=== PATIENT | male | born 1940 | race African-American/Black ===

== ENCOUNTER 2016-11-09 10:47 | Inpatient (IN) | payer OTHER ==
[2016-11-09] VITALS (16 sets, daily range): BP systolic 111–165; BP diastolic 56–74
[~2016-11-09] VITALS: Ht 165.1 cm; Wt 62.6 kg
[2016-11-09 12:16] LABS: BASO # 0.1 x10^3/uL (0.0-0.2); BASO % 1 % (0-3); EOS % 2 % (0-3); LYMPH # 1.6 x10^3/uL (1.0-4.8); LYMPH % 18 % (24-48); MEAN CORPUSCULAR HEMOGLOBIN 23 pg (25-35); MEAN CORPUSCULAR HGB CONC 30 g/dL (31-37); MEAN CORPUSCULAR VOLUME 76 fL (79-100); MONO % 10 % (0-9); NEUT % 71 % (31-73); PLATELET COUNT 336 x10^3/uL (140-400); RED BLOOD COUNT 2.72 x10^6/uL (4.30-5.70); RED CELL DISTRIBUTION WIDTH 20.9 % (11.5-14.5); WHITE BLOOD COUNT 8.9 x10^3/uL (4.0-11.0)
[2016-11-09 12:19] LABS: HEMOGLOBIN 6.2 g/dL (13.0-17.5)
[2016-11-09 12:20] LABS: HEMATOCRIT 20.5 % (39.0-53.0)
[2016-11-09 12:22] LABS: CALCIUM 9.2 mg/dL (8.5-10.1); CREATININE 1.3 mg/dL (0.7-1.3); GFR 64.9; POTASSIUM 4.3 mmol/L (3.5-5.1)
[2016-11-09 12:27] LABS: ALBUMIN 3.3 g/dL (3.4-5.0); ALBUMIN/GLOBULIN RATIO 0.8 (1.0-1.7); TOTAL BILIRUBIN 0.3 mg/dL (0.2-1.0); TOTAL PROTEIN 7.4 g/dL (6.4-8.2)
--- NOTE | 2016-11-09 12:27 | PHYS DOC ---
Past Medical History Past Medical History: GERD, High Cholesterol, Hypertension Past Surgical History: Other Alcohol Use: None Drug Use: None Adult General Chief Complaint Chief Complaint: WEAKNESS/GENERALIZED HPI HPI 76-year-old male presents with generalized weakness. He states he has been so weak he hasn't really been able to get up and move around. His states that his feet have been swelling quite a bit lately. He did complain of some epigastric and chest pain after eating head cheese and potato chips last night. He denies any melena or hematemesis. He states he is not having any symptoms currently.] Review of Systems Review of Systems Constitutional: Denies fever or chills [] Eyes: Denies change in visual acuity, redness, or eye pain [] HENT: Denies nasal congestion or sore throat [] Respiratory: Denies cough or shortness of breath [] Cardiovascular: No additional information not addressed in HPI [] GI: Denies abdominal pain, nausea, vomiting, bloody stools or diarrhea [] : Denies dysuria or hematuria [] Musculoskeletal: Denies back pain or joint pain [] Integument: Denies rash or skin lesions [] Neurologic: Denies headache, focal weakness or sensory changes [] Endocrine: Denies polyuria or polydipsia [] Current Medications Current Medications Current Medications Medications (Trade) Dose Ordered Sig/Vern Start Time Stop Time Status Last Admin Dose Admin Ondansetron HCl (Zofran) 4 mg PRN Q8HRS PRN 11/09/16 12:30 11/10/16 12:29 Allergies Allergies Allergies Coded Allergies Type Severity Reaction Last Updated Verified No Known Drug Allergies 11/09/16 No Physical Exam Physical Exam Constitutional: Well developed, well nourished, no acute distress, non-toxic appearance. [] HENT: Normocephalic, atraumatic, bilateral external ears normal, oropharynx moist, no oral exudates, nose normal. [] Eyes: PERRLA, EOMI, conjunctiva normal, no discharge. [] Neck: Normal range of motion, no tenderness, supple, no stridor. [] Cardiovascular:Heart rate regular rhythm, no murmur [] Lungs & Thorax: Bilateral breath sounds clear to auscultation [] Abdomen: Bowel sounds normal, soft, no tenderness, no masses, no pulsatile masses. [] Skin: Warm, dry, no erythema, no rash. [] Back: No tenderness, no CVA tenderness. [] Extremities: No tenderness, no cyanosis, no clubbing, ROM intact, no edema. [] Neurologic: Alert and oriented X 3, normal motor function, normal sensory function, no focal deficits noted. [] Psychologic: Affect normal, judgement normal, mood normal. [] Current Patient Data Vital Signs Vital Signs Date Time Temp Pulse Resp B/P Pulse Ox O2 Delivery O2 Flow Rate FiO2 11/09/16 11:19 98.0 97 20 128/88 91 Room Air 98.0 Lab Values Laboratory Tests Test 11/09/16 12:05 White Blood Count 8.9x10^3/uL (4.0-11.0) Red Blood Count 2.72x10^6/uL (4.30-5.70) L Hemoglobin 6.2g/dL (13.0-17.5) *L Hematocrit 20.5% (39.0-53.0) *L Mean Corpuscular Volume 76fL (79-100) L Mean Corpuscular Hemoglobin 23pg (25-35) L Mean Corpuscular Hemoglobin Concent 30g/dL (31-37) L Red Cell Distribution Width 20.9% (11.5-14.5) H Platelet Count 336x10^3/uL (140-400) Neutrophils (%) (Auto) 71% (31-73) Lymphocytes (%) (Auto) 18% (24-48) L Monocytes (%) (Auto) 10% (0-9) H Eosinophils (%) (Auto) 2% (0-3) Basophils (%) (Auto) 1% (0-3) Neutrophils # (Auto) 6.3x10^3uL (1.8-7.7) Lymphocytes # (Auto) 1.6x10^3/uL (1.0-4.8) Monocytes # (Auto) 0.8x10^3/uL (0.0-1.1) Eosinophils # (Auto) 0.1x10^3/uL (0.0-0.7) Basophils # (Auto) 0.1x10^3/uL (0.0-0.2) Platelet Estimate Adequate (ADEQUATE) Giant Platelets Few Polychromasia Slight Hypochromasia Mod Poikilocytosis Slight Basophilic Stippling Present Anisocytosis Mod Schistocytes Few Sodium Level 148mmol/L (136-145) H Potassium Level 4.3mmol/L (3.5-5.1) Chloride Level 111mmol/L (98-107) H Carbon Dioxide Level 24mmol/L (21-32) Anion Gap 13 (6-14) Blood Urea Nitrogen 15mg/dL (8-26) Creatinine 1.3mg/dL (0.7-1.3) Estimated GFR (Cockcroft-Gault) 64.9 BUN/Creatinine Ratio 12 (6-20) Glucose Level 95mg/dL (70-99) Calcium Level 9.2mg/dL (8.5-10.1) Total Bilirubin 0.3mg/dL (0.2-1.0) Aspartate Amino Transferase (AST) 29U/L (15-37) Alanine Aminotransferase (ALT) 65U/L (16-63) H Alkaline Phosphatase 89U/L (46-116) Troponin I Quantitative 0.276ng/mL (0.000-0.055) MD-Jok-Y-Type Natriuretic Peptide 2172pg/mL (0-449) H Total Protein 7.4g/dL (6.4-8.2) Albumin 3.3g/dL (3.4-5.0) L Albumin/Globulin Ratio 0.8 (1.0-1.7) L Laboratory Tests 11/09/16 12:05 Laboratory Tests 11/09/16 12:05 EKG EKG EKG: Normal sinus rhythm LVH with depression laterally rate of 80 [] Radiology/Procedures Radiology/Procedures [] Course & Med Decision Making Course & Med Decision Making Pertinent Labs and Imaging studies reviewed. (See chart for details) [] Dragon Disclaimer Dragon Disclaimer This electronic medical record was generated, in whole or in part, using a voice recognition dictation system. Departure Departure Impression: Primary Impression: Symptomatic anemia Additional Impression: Elevated troponin Disposition: ADMITTED INPATIENT Condition: STABLE Referrals: DOMINIC BLUNT MD (PCP) Problem Qualifiers RAINA TREJO DO Nov 09, 2016 12:27
[2016-11-09] MEDS ORDERED: ONDANSETRON PF 4 MG/2 ML VIAL. IV PRN (12:30)
--- NOTE | 2016-11-09 12:56 | EKG ---
[facility] [address] [place] [address] Test Date: 2016-11-09 Test Time: 11:03:48 Pat Name: MANSI PAVON Department: Room: Gender: Life Science Research Assistant: : 1940 Requested By: RAINA TREJO Order Number: [id number] Reading MD: Measurements Intervals [place] Rate: 78 P: 78 AK: 124 QRS: 31 QRSD: 98 T: 34 QT: 388 QTc: 446 Interpretive Statements SINUS RHYTHM LEFT ATRIAL ABNORMALITY LVH WITH REPOLARIZATION ABNORMALITY RI6.01 Unconfirmed report No previous ECG available for comparison
[2016-11-09 13:52] LABS: ANISOCYTOSIS MOD; HYPOCHROMIA MOD; PLT ESTIMATE ADEQUATE (ADEQUATE); POIKILOCYTOSIS SLIGHT; SCHISTOCYTES FEW
[2016-11-09 13:53] LABS: POLYCHROMASIA SLIGHT
--- NOTE | 2016-11-09 14:09 | ACF ---
Admission Forms Criteria ANEMIA, IRON DEFICIENCY OR UNSPECIFIED Clinical Indications for Inpatient Care (Place 'X' for any and all applicable criteria): Admission is indicated for ANY ONE of the following(1)(2)(3)(4)(5)(6)(7): [X] I. Inpatient admission required rather than observation care (Also use Anemia, Iron Deficiency or Unspecified: Observation Care guideline as appropriate) because of ANY ONE of the following: [] a) Hemodynamic instability that is severe or persistent [] b) Active bleeding that cannot be rapidly controlled [] c) CVS symptoms (i.e., dyspnea, chest pain, heart failure) that are severe or persistent [] d) Neurologic symptoms (i.e., cognitive impairment, recurrent syncope or near syncope) that are severe or persistent [] e) Cardiac arrhythmias of immediate concern [] f) Acute peripheral ischemia (e.g., pulseless, cool, mottled, or cyanotic extremity) [] g) High-risk low platelet count [] h) Acute renal failure [] i) Ongoing transfusion for blood loss (greater than 2 units) [] j) IV fluid to replace significant ongoing (eg, >24 hours) losses (> 3 L/m2 per day) [] k) Pulmonary artery catheter monitoring [] l) Supplemental oxygen or respiratory treatments for over 24 hours that are performable only in acute inpatient setting [] m) Immediate inpatient surgery [X] n) Other condition, treatment or monitoring requiring inpatient admission [] II Active massive hemorrhage [] III. Active hemolysis with rapidly progressive anemia [A](6) Extended stay beyond goal length of stay may be needed for (17)(18) []a) Diagnosed cause of anemia requiring longer hospitalization (eg, active GI bleeding, immune hemolysis requiring electrophoresis, complications of malignancy requiring acute care []b) Continued emergent anemia indicators (23) []c) Transfusion reactions []d) Associated leukopenia or thrombocytopenia needing inpatient care []e) Active comorbidities (eg, renal failure, heart failure) The original [facility] content created by [facility] has been revised. The portions of the content which have been revised are identified through the use of italic text or in bold. [facility] Guidelines has neither reviewed nor approved the modified material. All other unmodified content is copyright [facility]. Please see references footnoted in the original [facility] edition 2016 Admission Criteria Met?: Yes LALITO AGUIRRE Nov 09, 2016 14:09
--- NOTE | 2016-11-09 14:25 | PDOC2 ---
GI CONSULT Reason For Consult: Anemia HPI: HPI: 76 y/o AA male seen in the ER (alone in room) where he was evaluated for weakness; upon reviewing ER notes, it seems his family has been concerned that he's not acting like himself. History is a bit difficult, some obtained from chart. Labs significant for Hgb 6.2, BNP 2172, and elevated troponin (0.276). He relays a h/o "mini strokes" dating back to 1996 to me w/ some possible increased weakness recently. He describes a fall about 2 weeks ago while carrying groceries. He denies syncope or injury, just that he had some difficulty getting back up. He has had some left-sided chest discomfort w/ nausea, shortness of breath, and dizziness; these symptoms occur after eating [employer] potato chips (which he says he likes but contain "too much salt"). He denies vomiting/hematemesis, reflux/heartburn, dysphagia, abdominal pain, change in appetite, weight loss, diarrhea, constipation, hematochezia, or melena. He denies previous EGD or colonoscopy. With him, he has a plastic bag full of emptying pill bottles. He says he was to see his PCP this week for refills. He's not sure how long he's been out of medication. Included is one bottle for Meloxicam; he's not sure if he takes that or other NSAIDs but wants to be clear that he "takes what he's supposed to take." PMH: PMH: ?TIAs, HTN, HLD, allergic rhinitis Social History: Smoke: 1 pack per day ALCOHOL: other (h/o alcoholism, now sober) Drugs: None ROS: GEN: Denies fevers, chills, sweats HEENT: Denies blurred vision, sore throat CV: +CP RESP: +SOA GI: Per HPI : Denies hematuria, dysuria ENDO: Denies weight changes NEURO: +dizziness MSK: +weakness SKIN: Denies jaundice, pruritus VItals: Vitals: Vital Signs Date Time Temp Pulse Resp B/P Pulse Ox O2 Delivery O2 Flow Rate FiO2 11/09/16 14:02 98.5 78 18 123/58 98.5 11/09/16 11:19 91 Room Air Labs: Labs: Laboratory Tests Test 11/09/16 12:05 White Blood Count 8.9x10^3/uL (4.0-11.0) Red Blood Count 2.72x10^6/uL (4.30-5.70) Hemoglobin 6.2g/dL (13.0-17.5) Hematocrit 20.5% (39.0-53.0) Mean Corpuscular Volume 76fL (79-100) Mean Corpuscular Hemoglobin 23pg (25-35) Mean Corpuscular Hemoglobin Concent 30g/dL (31-37) Red Cell Distribution Width 20.9% (11.5-14.5) Platelet Count 336x10^3/uL (140-400) Neutrophils (%) (Auto) 71% (31-73) Lymphocytes (%) (Auto) 18% (24-48) Monocytes (%) (Auto) 10% (0-9) Eosinophils (%) (Auto) 2% (0-3) Basophils (%) (Auto) 1% (0-3) Neutrophils # (Auto) 6.3x10^3uL (1.8-7.7) Lymphocytes # (Auto) 1.6x10^3/uL (1.0-4.8) Monocytes # (Auto) 0.8x10^3/uL (0.0-1.1) Eosinophils # (Auto) 0.1x10^3/uL (0.0-0.7) Basophils # (Auto) 0.1x10^3/uL (0.0-0.2) Platelet Estimate Adequate (ADEQUATE) Giant Platelets Few Polychromasia Slight Hypochromasia Mod Poikilocytosis Slight Basophilic Stippling Present Anisocytosis Mod Schistocytes Few Sodium Level 148mmol/L (136-145) Potassium Level 4.3mmol/L (3.5-5.1) Chloride Level 111mmol/L (98-107) Carbon Dioxide Level 24mmol/L (21-32) Anion Gap 13 (6-14) Blood Urea Nitrogen 15mg/dL (8-26) Creatinine 1.3mg/dL (0.7-1.3) Estimated GFR (Cockcroft-Gault) 64.9 BUN/Creatinine Ratio 12 (6-20) Glucose Level 95mg/dL (70-99) Calcium Level 9.2mg/dL (8.5-10.1) Total Bilirubin 0.3mg/dL (0.2-1.0) Aspartate Amino Transf (AST/SGOT) 29U/L (15-37) Alanine Aminotransferase (ALT/SGPT) 65U/L (16-63) Alkaline Phosphatase 89U/L (46-116) Troponin I Quantitative 0.276ng/mL (0.000-0.055) IA-Lca-Q-Type Natriuretic Peptide 2172pg/mL (0-449) Total Protein 7.4g/dL (6.4-8.2) Albumin 3.3g/dL (3.4-5.0) Albumin/Globulin Ratio 0.8 (1.0-1.7) Allergies: Coded Allergies: No Known Drug Allergies (Unverified , 11/09/16) Medications: Please see EMR. Imaging: Imaging: - PE: GEN: NAD HEENT: Atraumatic, PERRL LUNGS: clear anteriorly HEART: S1S2 ABD: NABS, S/ND/NT EXTREMITY: No edema SKIN: No rashes, no jaundice NEURO/PSYCH: A & O 3 A/P: A/P: Anemia -Hgb 6.2 as above -denies bleeding -transfusion ordered Chest pain, weakness -w/ SOA, dizziness/weakness, nausea -?h/o TIA -reports fall ~2 weeks ago -eating potato chips seem to aggravate symptoms Elevated troponin, BNP -cardiology consulted as well ?NSAID use -- Difficult history. Hopefully PCP can provide more info re: previous GI workup ( if any). Will check iron profile. Other per Dr. Short. ADRIÁN HITCHCOCK Nov 09, 2016 14:25
[2016-11-09] MEDS ORDERED: FERR-26 PO (16:10)
[2016-11-09] MEDS ORDERED: AMLO10TA2 PO (16:10)
[2016-11-09] MEDS ORDERED: MELO-156 PO (16:10)
[2016-11-09] MEDS ORDERED: ATEN25TA PO (16:10)
[2016-11-09] MEDS ORDERED: OXYC-323 PO (16:10)
[2016-11-09] MEDS ORDERED: LORA10TA3 PO (16:10)
[2016-11-09] MEDS ORDERED: ATOR40TA59 PO (16:10)
[2016-11-09] MEDS ORDERED: MECL25TA3 PO (16:10)
--- NOTE | 2016-11-09 16:20 | PDOC2 ---
DONNIE SOTO [employer] 11/09/16 1620: CARDIAC CONSULT DATE OF CONSULT Date of Consult DATE: 11/09/16 TIME: 15:52 REASON FOR CONSULT Reason for Consult: Elevated troponin REFERRING PHYSICIAN Referring Physician: Marilynn SOURCE Source: Caregiver (spouse), Chart review, Patient HISTORY OF PRESENT ILLNESS HISTORY OF PRESENT ILLNESS This is a 76 yo male admitted for complains of weakness and dizziness. He has been having gas pain pointing to his epigastric region but no nausea or vomiting. He has been eating a lot of potato chips. He takes regular dosed ASA and denies any blood in stool or black stool or any signs of bleeding. He is not a good historian with spouse describing the details of his symptoms and medical history. Based on his activity description he is at least METS of 5. Denies any SOA, M[place] but in the last few days he has been feeling weak/tired and was going to go to his PCP but he was too dizzy. Denies any palpitations, any passing out or any recent injury or falls. No recent fever or chills. No hx of CAD, VTE, PUD, no arrhythmias. Denies being diagnosed with COPD. He is a heavy smoker but denies any use of ETOH. or recreational drugs He is also on meloxicam. PAST MEDICAL HISTORY Cardiovascular: HTN, Hyperlipidemia, Other (chronic leg edema) Pulmonary: Other (heavy tobaccoism, denies COPD) CENTRAL NERVOUS SYSTEM: CVA (with left sided weakness residual), Dementia, TIA (multiple ), Vertigo Heme/Onc: Anemia NOS Hepatobiliary: No pertinent hx Musculoskeletal: low back pain (chornic), Osteoarthritis Rheumatologic: No pertinent hx Infectious disease: No pertinent hx ENT: Allergic Rhinitis Renal/: No pertinent hx Endocrine: No pertinent hx Dermatology: No pertinent hx PAST SURGICAL HISTORY Past Surgical History: Other (neck surgery) FAMILY HISTORY Family History noncontributory SOCIAL HISTORY Smoke: 2 packs per day (>50 yrs) ALCOHOL: none Drugs: None Lives: with Family ALLERGIES ALLERGIES: Coded Allergies: No Known Drug Allergies (Unverified , 11/09/16) ROS Review of System Limited, pt is not a good historian, see HPI PHYSICAL EXAM General: Alert, Oriented X3, Cooperative, No acute distress HEENT: Atraumatic, Mucous membr. moist/pink Lungs: Other (finat crackles) Heart: Regular rate, Normal S1, Normal S2, Other (3/6 systolic murmur to LLS border) Abdomen: Soft, No tenderness Extremities: No cyanosis, Other (2+ bilateral LE pitting edema) Skin: No breakdown, No significant lesion Neuro: Normal speech, Sensation intact Psych/Mental Status: Mental status NL, Other (impulsive) MUSCULOSKELETAL: Osteoarthritic changes both hands VITALS VITALS Vital Signs Date Time Temp Pulse Resp B/P Pulse Ox O2 Delivery O2 Flow Rate FiO2 11/09/16 15:13 98.1 80 18 145/63 Room Air 98.1 11/09/16 14:23 95 LABS Lab: Laboratory Tests Test 11/09/16 12:05 White Blood Count 8.9x10^3/uL (4.0-11.0) Red Blood Count 2.72x10^6/uL (4.30-5.70) Hemoglobin 6.2g/dL (13.0-17.5) Hematocrit 20.5% (39.0-53.0) Mean Corpuscular Volume 76fL (79-100) Mean Corpuscular Hemoglobin 23pg (25-35) Mean Corpuscular Hemoglobin Concent 30g/dL (31-37) Red Cell Distribution Width 20.9% (11.5-14.5) Platelet Count 336x10^3/uL (140-400) Neutrophils (%) (Auto) 71% (31-73) Lymphocytes (%) (Auto) 18% (24-48) Monocytes (%) (Auto) 10% (0-9) Eosinophils (%) (Auto) 2% (0-3) Basophils (%) (Auto) 1% (0-3) Neutrophils # (Auto) 6.3x10^3uL (1.8-7.7) Lymphocytes # (Auto) 1.6x10^3/uL (1.0-4.8) Monocytes # (Auto) 0.8x10^3/uL (0.0-1.1) Eosinophils # (Auto) 0.1x10^3/uL (0.0-0.7) Basophils # (Auto) 0.1x10^3/uL (0.0-0.2) Platelet Estimate Adequate (ADEQUATE) Giant Platelets Few Polychromasia Slight Hypochromasia Mod Poikilocytosis Slight Basophilic Stippling Present Anisocytosis Mod Schistocytes Few Sodium Level 148mmol/L (136-145) Potassium Level 4.3mmol/L (3.5-5.1) Chloride Level 111mmol/L (98-107) Carbon Dioxide Level 24mmol/L (21-32) Anion Gap 13 (6-14) Blood Urea Nitrogen 15mg/dL (8-26) Creatinine 1.3mg/dL (0.7-1.3) Estimated GFR (Cockcroft-Gault) 64.9 BUN/Creatinine Ratio 12 (6-20) Glucose Level 95mg/dL (70-99) Calcium Level 9.2mg/dL (8.5-10.1) Total Bilirubin 0.3mg/dL (0.2-1.0) Aspartate Amino Transf (AST/SGOT) 29U/L (15-37) Alanine Aminotransferase (ALT/SGPT) 65U/L (16-63) Alkaline Phosphatase 89U/L (46-116) Troponin I Quantitative 0.276ng/mL (0.000-0.055) YU-Gzq-O-Type Natriuretic Peptide 2172pg/mL (0-449) Total Protein 7.4g/dL (6.4-8.2) Albumin 3.3g/dL (3.4-5.0) Albumin/Globulin Ratio 0.8 (1.0-1.7) ASSESSMENT/PLAN ASSESSMENT/PLAN 1. Acute anemia: notable for dyspepsia and chronic 325 mg ASA and mobic use, no PPI nor H2 libertad home use. Hgb 6.2 2. Presyncope: related to above 3. Elevated troponin: Troponin 0.276. EKG SR with LVH with LV strain pattern. No anginal symptoms. Elevation likely secondary to anemia. 3. HTN: controlled 4. HLP 5. Hx of CVA and multiple TIAs 6. Chronic heavy tobaccoism: likely undiagnosed COPD. at least 100 pk yr. 7. Dementia- likely vascular Recommendations 1. Blood transfusion ongoing. GI consulted 2. TTE, TSH, lipid panel, trend troponin 3. Future MPI as an outpt if none done recently for further risk stratification given his significant risk factors. 4. Hold ASA for now till anemia source corrected. 5. Continue with secondary prevention. Problems: KT VIZCARRA MD 11/09/16 5250: CARDIAC CONSULT ALLERGIES ALLERGIES: Coded Allergies: No Known Drug Allergies (Unverified , 11/09/16) ASSESSMENT/PLAN ASSESSMENT/PLAN Pt. seen and examined. Agree with above GUIDE EXCURSION note. 76 y.o presenting with likely GIB. Trop elevated with CP. Normal cardiac exam. Replete blood. Ok to proceed with any GI eval from a CV perspective. Will f/u on an outpt basis for consideration of stress test. CP likely secondary to severe anemia, unknown baseline cbc. Problems: DONNIE SOTO APRN Nov 09, 2016 16:20 KT VIZCARRA MD Nov 09, 2016 16:49
[2016-11-09 16:34] LABS: % SAT IRON 3 % (15-34); IRON,SERUM 12 ug/dL (65-175)
[2016-11-09 16:44] LABS: INR 1.3 (0.8-1.1); PROTHROMBIN TIME PATIENT 15.3 SEC (11.7-14.0)
[2016-11-09] MEDS ORDERED: OXYCODONE/APAP 5/325 TABLET. PO PRN (20:45)
[2016-11-09] MEDS: ATORVASTATIN CALCIUM 40 MG TABLET. PO SCH (21:00)
[2016-11-09] MEDS: PANTOPRAZOLE SODIUM IV 80 MG in IV NORMAL SALINE 100ML 100 ML IV SCH (23:09)
[2016-11-09] MEDS: IV DEXTROSE 5% - 0.9 % NACL 1,000 ML IV SCH (23:14)
[2016-11-10 03:35] VITALS: BP 127/59
[2016-11-10 04:57] LABS: BASO % 0 % (0-3); EOS % 1 % (0-3); HEMATOCRIT 28.2 % (39.0-53.0); HEMOGLOBIN 8.5 g/dL (13.0-17.5); LYMPH # 1.2 x10^3/uL (1.0-4.8); LYMPH % 9 % (24-48); MEAN CORPUSCULAR HEMOGLOBIN 24 pg (25-35); MEAN CORPUSCULAR HGB CONC 30 g/dL (31-37); MEAN CORPUSCULAR VOLUME 79 fL (79-100); MONO % 10 % (0-9); NEUT % 80 % (31-73); PLATELET COUNT 322 x10^3/uL (140-400); RED BLOOD COUNT 3.59 x10^6/uL (4.30-5.70); RED CELL DISTRIBUTION WIDTH 20.2 % (11.5-14.5); WHITE BLOOD COUNT 13.2 x10^3/uL (4.0-11.0)
[2016-11-10 05:32] LABS: CALCIUM 8.7 mg/dL (8.5-10.1); CREATININE 1.1 mg/dL (0.7-1.3); GFR 78.7; POTASSIUM 3.8 mmol/L (3.5-5.1)
[2016-11-10 05:33] LABS: CHOLESTEROL/HDL RATIO 3.3
[2016-11-10] MEDS: PANTOPRAZOLE SODIUM IV 80 MG in IV NORMAL SALINE 100ML 100 ML IV SCH (06:45)
[2016-11-10] MEDS: IV DEXTROSE 5% - 0.9 % NACL 1,000 ML IV SCH ×2 (06:45→16:45)
[2016-11-10 07:00] VITALS: BP 131/63
[2016-11-10] MEDS ORDERED: IRON SUCROSE COMPLEX 500 MG in IV NORMAL SALINE 250ML 250 ML IV ONE (08:00)
--- NOTE | 2016-11-10 08:46 | RAD ---
INDICATION: anemia /copd COMPARISON: 10/10/2011 FINDINGS: 2 views of chest obtained. There is patchy interstitial and alveolar opacity most severe within the right lung. Cardiac silhouette is mildly enlarged. Mild degenerative spurring of the spine. Mild blunting of costophrenic angles posteriorly. IMPRESSION: Mild patchy opacity in the right greater than left lung. Could be from pneumonia or asymmetric edema. Mild blunting of costophrenic angles posteriorly. Could be from pleural thickening or small pleural effusion.
--- NOTE | 2016-11-10 08:49 | PDOC ---
Provider Note Provider Note Onc consult dictated- [id number] Iron def anemia- due to chronic blood loss or decreased dietary absorption- Venofer ordered today/ tomorrow. DC on po iron it tolerated. Agree with Soledad krueger. GAIL URIBE DO Nov 10, 2016 08:48
[2016-11-10] MEDS: ATENOLOL 25 MG TABLET PO SCH ×2 (09:00→16:16)
--- NOTE | 2016-11-10 10:28 | CARD ---
APPROVED REPORT EXAM: Two-dimensional and M-mode echocardiogram with Doppler and color Doppler. Other Information Quality : GoodHR: 82bpm Rhythm : NSR INDICATION Elevated Troponin. 2D DIMENSIONS RVDd2.3 (2.9-3.5cm)Left Atrium(2D)3.6 (1.6-4.0cm) IVSd1.0 (0.7-1.1cm)Aortic Root(2D)2.5 (2.0-3.7cm) LVDd5.1 (3.9-5.9cm)LVOT Diameter2.1 (1.8-2.4cm) PWd1.0 (0.7-1.1cm)LVDs3.2 (2.5-4.0cm) FS (%) 37.2 %SV83.7 ml LVEF(%)66.9 (>50%) Aortic Valve AoV Peak Idris.185.8cm/sAoV VTI38.9cm AO Peak GR.13.8mmHgLVOT Peak Idris.114.2cm/s LVOT VTI 24.19cmAO Mean GR.7mmHg KAILASH (VMAX)2.02ii2RHT (VTI)2.18cm2 Mitral Valve MV E Rpznsgts991.5cm/sMV E Peak Gr.129mmHg MV DECEL [id number] A Elrppqml997.0cm/s MV E Mean Gr.7mmHgMV HPQ34pt E/A Ratio1.3MV A [id number] MVA (PHT)4.90cm2 TDI E/Lateral E'13.5E/Medial E'21.7 Pulmonary Valve PV Peak Wchulmuj570.6cm/sPV Peak Grad.5mmHg RVOT VTI15.3cm Tricuspid Valve TR P. Unluwknw737ie/sRAP EWKBVEDV6alBr TR Peak Gr.70wjZgNKDQ44dmCw LEFT VENTRICLE The left ventricle is normal size. There is normal left ventricular wall thickness. Left ventricle sy stolic function is normal. The Ejection Fraction is 55-60%. There is normal LV segmental wall motion. Tissue Doppler imaging reveals mild left ventricular diastolic dysfunction. There is no ventricular septal defect visualized. RIGHT VENTRICLE The right ventricle is normal size. There is normal right ventricular wall thickness. The right ventr icular systolic function is normal. ATRIA The left atrium size is normal. The right atrium size is normal. The interatrial septum is intact wit h no evidence for an atrial septal defect or patent foramen ovale as noted on 2-D or Doppler imaging. AORTIC VALVE The aortic valve is mildly sclerotic. The aortic valve is trileaflet. Doppler and Color Flow revealed no significant aortic regurgitation. There is no significant aortic valvular stenosis. MITRAL VALVE The mitral valve is normal in structure. There is no mitral valve stenosis. Doppler and Color Flow re vealed mild mitral regurgitation. TRICUSPID VALVE The tricuspid valve is normal in structure. Doppler and Color Flow revealed mild tricuspid regurgitat ion. There is no pulmonary hypertension. The PA pressure was estimated at 23 mmHg. There is no tricus pid valve stenosis. PULMONIC VALVE Doppler and Color Flow revealed trace to mild pulmonic valvular regurgitation. There is no pulmonic v alvular stenosis. GREAT VESSELS The aortic root is normal in size. The ascending aorta is normal in size. The IVC is normal in size a nd collapses >50% with inspiration. PERICARDIAL EFFUSION There is no evidence of significant pericardial effusion. Critical Notification Critical Value: No <Conclusion> Left ventricle systolic function is normal. The Ejection Fraction is 55-60%. There is normal LV segmental wall motion. Doppler and Color Flow revealed mild mitral regurgitation.
--- NOTE | 2016-11-10 10:34 | PDOC ---
Subjective: Subjective: Out of room when I came by. Objective: Objective: Per RN - normal BM yesterday, no bleeding, ate w/o issue yesterday. Dr. Sotomayor requesting EGD. 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 Vital Signs: Vital Signs Date Time Temp Pulse Resp B/P Pulse Ox O2 Delivery O2 Flow Rate FiO2 11/10/16 07:00 97.8 81 20 131/63 83 Room Air 97.8 Labs: Laboratory Tests Test 11/09/16 12:05 11/10/16 03:56 White Blood Count 8.9x10^3/uL 13.2x10^3/uL Red Blood Count 2.72x10^6/uL 3.59x10^6/uL Hemoglobin 6.2g/dL 8.5g/dL Hematocrit 20.5% 28.2% Mean Corpuscular Volume 76fL 79fL Mean Corpuscular Hemoglobin 23pg 24pg Mean Corpuscular Hemoglobin Concent 30g/dL 30g/dL Red Cell Distribution Width 20.9% 20.2% Platelet Count 336x10^3/uL 322x10^3/uL Neutrophils (%) (Auto) 71% 80% Lymphocytes (%) (Auto) 18% 9% Monocytes (%) (Auto) 10% 10% Eosinophils (%) (Auto) 2% 1% Basophils (%) (Auto) 1% 0% Neutrophils # (Auto) 6.3x10^3uL 10.5x10^3uL Lymphocytes # (Auto) 1.6x10^3/uL 1.2x10^3/uL Monocytes # (Auto) 0.8x10^3/uL 1.3x10^3/uL Eosinophils # (Auto) 0.1x10^3/uL 0.1x10^3/uL Basophils # (Auto) 0.1x10^3/uL 0.0x10^3/uL Platelet Estimate Adequate Giant Platelets Few Polychromasia Slight Hypochromasia Mod Poikilocytosis Slight Basophilic Stippling Present Anisocytosis Mod Schistocytes Few Prothrombin Time 15.3SEC Prothromb Time International Ratio 1.3 Sodium Level 148mmol/L 147mmol/L Potassium Level 4.3mmol/L 3.8mmol/L Chloride Level 111mmol/L 113mmol/L Carbon Dioxide Level 24mmol/L 23mmol/L Anion Gap 13 11 Blood Urea Nitrogen 15mg/dL 15mg/dL Creatinine 1.3mg/dL 1.1mg/dL Estimated GFR (Cockcroft-Gault) 64.9 78.7 BUN/Creatinine Ratio 12 Glucose Level 95mg/dL 105mg/dL Calcium Level 9.2mg/dL 8.7mg/dL Iron Level 12ug/dL Total Iron Binding Capacity 388ug/dL Iron Saturation 3% Total Bilirubin 0.3mg/dL Aspartate Amino Transf (AST/SGOT) 29U/L Alanine Aminotransferase (ALT/SGPT) 65U/L Alkaline Phosphatase 89U/L Troponin I Quantitative 0.276ng/mL 3.795ng/mL [id number]-Mwf-[id number]-Type Natriuretic Peptide 2172pg/mL Total Protein 7.4g/dL Albumin 3.3g/dL Albumin/Globulin Ratio 0.8 Thyroid Stimulating Hormone (TSH) 1.958uIU/mL 1.448uIU/mL Triglycerides Level 61mg/dL Cholesterol Level 115mg/dL LDL Cholesterol, Calculated 68mg/dL VLDL Cholesterol, Calculated 12mg/dL HDL Cholesterol 35mg/dL Cholesterol/HDL Ratio 3.3 PE: no exam A/P: ABDULAZIZ -?NSAID use -no previous EGD/colonoscopy -Hgb improved s/p transfusion Elevated troponin -okay w/ cardio to proceed w/ GI workup -- D/w Dr. Short. Keep NPO for EGD this afternoon. D/w GI lab, RN. D/w Dr. Morgan - changed to PO PPI. ADRIÁN HITCHCOCK Nov 10, 2016 10:34
[2016-11-10 11:00] VITALS: BP 133/69
[2016-11-10 11:26] LABS: FOLIC ACID 4.9 ng/mL (>3.0)
--- NOTE | 2016-11-10 12:00 | PDOC ---
CARDIO Progress Notes Date and Time Date of Service 11/10/2016 Time of Evaluation 1000 Subjective Subjective: No Chest Pain, No shortness of breath, No Palpitations, No Dizziness, Other (sitting up denies any discomfort) Vitals Vitals Vital Signs Date Time Temp Pulse Resp B/P Pulse Ox O2 Delivery O2 Flow Rate FiO2 11/10/16 11:00 97.6 85 19 133/69 88 Nasal Cannula 2.0 97.6 Weight Weight [ ] Input and Output Intake and Output Intake and Output 11/10/16 07:00 Intake Total 833 ml Output Total 1300 ml Balance -467 ml Intake Oral 480 ml Blood Product IV Normal Saline Flush 353 ml Output Urine Total 1300 ml Laboratory Labs Laboratory Tests Test 11/09/16 12:05 11/10/16 03:56 11/10/16 05:56 White Blood Count 8.9x10^3/uL (4.0-11.0) 13.2x10^3/uL (4.0-11.0) Red Blood Count 2.72x10^6/uL (4.30-5.70) 3.59x10^6/uL (4.30-5.70) Hemoglobin 6.2g/dL (13.0-17.5) 8.5g/dL (13.0-17.5) Hematocrit 20.5% (39.0-53.0) 28.2% (39.0-53.0) Mean Corpuscular Volume 76fL (79-100) 79fL (79-100) Mean Corpuscular Hemoglobin 23pg (25-35) 24pg (25-35) Mean Corpuscular Hemoglobin Concent 30g/dL (31-37) 30g/dL (31-37) Red Cell Distribution Width 20.9% (11.5-14.5) 20.2% (11.5-14.5) Platelet Count 336x10^3/uL (140-400) 322x10^3/uL (140-400) Neutrophils (%) (Auto) 71% (31-73) 80% (31-73) Lymphocytes (%) (Auto) 18% (24-48) 9% (24-48) Monocytes (%) (Auto) 10% (0-9) 10% (0-9) Eosinophils (%) (Auto) 2% (0-3) 1% (0-3) Basophils (%) (Auto) 1% (0-3) 0% (0-3) Neutrophils # (Auto) 6.3x10^3uL (1.8-7.7) 10.5x10^3uL (1.8-7.7) Lymphocytes # (Auto) 1.6x10^3/uL (1.0-4.8) 1.2x10^3/uL (1.0-4.8) Monocytes # (Auto) 0.8x10^3/uL (0.0-1.1) 1.3x10^3/uL (0.0-1.1) Eosinophils # (Auto) 0.1x10^3/uL (0.0-0.7) 0.1x10^3/uL (0.0-0.7) Basophils # (Auto) 0.1x10^3/uL (0.0-0.2) 0.0x10^3/uL (0.0-0.2) Platelet Estimate Adequate (ADEQUATE) Giant Platelets Few Polychromasia Slight Hypochromasia Mod Poikilocytosis Slight Basophilic Stippling Present Anisocytosis Mod Schistocytes Few Prothrombin Time 15.3SEC (11.7-14.0) Prothromb Time International Ratio 1.3 (0.8-1.1) Sodium Level 148mmol/L (136-145) 147mmol/L (136-145) Potassium Level 4.3mmol/L (3.5-5.1) 3.8mmol/L (3.5-5.1) Chloride Level 111mmol/L (98-107) 113mmol/L (98-107) Carbon Dioxide Level 24mmol/L (21-32) 23mmol/L (21-32) Anion Gap 13 (6-14) 11 (6-14) Blood Urea Nitrogen 15mg/dL (8-26) 15mg/dL (8-26) Creatinine 1.3mg/dL (0.7-1.3) 1.1mg/dL (0.7-1.3) Estimated GFR (Cockcroft-Gault) 64.9 78.7 BUN/Creatinine Ratio 12 (6-20) Glucose Level 95mg/dL (70-99) 105mg/dL (70-99) Calcium Level 9.2mg/dL (8.5-10.1) 8.7mg/dL (8.5-10.1) Iron Level 12ug/dL (65-175) Total Iron Binding Capacity 388ug/dL (250-450) Iron Saturation 3% (15-34) Total Bilirubin 0.3mg/dL (0.2-1.0) Aspartate Amino Transf (AST/SGOT) 29U/L (15-37) Alanine Aminotransferase (ALT/SGPT) 65U/L (16-63) Alkaline Phosphatase 89U/L (46-116) Troponin I Quantitative 0.276ng/mL (0.000-0.055) 3.795ng/mL (0.000-0.055) MD-Udt-Z-Type Natriuretic Peptide 2172pg/mL (0-449) Total Protein 7.4g/dL (6.4-8.2) Albumin 3.3g/dL (3.4-5.0) Albumin/Globulin Ratio 0.8 (1.0-1.7) Thyroid Stimulating Hormone (TSH) 1.958uIU/mL (0.358-3.74) 1.448uIU/mL (0.358-3.74) Triglycerides Level 61mg/dL (0-150) Cholesterol Level 115mg/dL (0-200) LDL Cholesterol, Calculated 68mg/dL (0-100) VLDL Cholesterol, Calculated 12mg/dL (0-40) HDL Cholesterol 35mg/dL (40-60) Cholesterol/HDL Ratio 3.3 Prostate Specific Antigen Screen 2.0ng/mL (0.0-4.0) Vitamin B12 Level 309pg/mL (211-946) Folic Acid (LAB) 4.9ng/mL (>3.0) Physical Exam HEENT: Neck Supple W Full Motion Chest: Symmetric LUNGS: Clear to Auscultation Heart: S1S2, RRR (no significant ectopies overnight) Abdomen: Soft N/T Extremities: No Edema, No Calf Tenderness Neurology: alert, oriented, follow commands Assessment Assessment 1. Acute anemia: No obvious bleed. Fe def vs GIB. 2. Presyncope: related to above 3. NSTEMI: No anginal symptoms. Peaked troponin at 3.7, possibly type 2. TTE with normal wall motion and preserved EF. 4. HTN: controlled 5. HLP: lipids on goal 6. Hx of CVA and multiple TIAs 7. Chronic heavy tobaccoism: likely undiagnosed COPD. at least 100 pk yr. 8. 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 S/P blood transfusion, Hgb 6.2 now 8.5. EGD today 2. Will consider for MPI as an outpt pending EGD result. 3. Hold ASA for now till anemia source corrected. Resume ASA when ok with others. 4. Continue with secondary prevention as warranted. 5. Follow up in office in 2-3 weeks. DONNIE SOTO APRN Nov 10, 2016 11:59
--- NOTE | 2016-11-10 12:14 | CONS ---
DATE OF CONSULTATION: 11/10/2016 ONCOLOGY CONSULTATION REFERRING PROVIDER: Dr. Sotomayor. REASON FOR CONSULTATION: Iron deficiency anemia. HISTORY OF PRESENT ILLNESS: The patient is a 76-year-old male who presented to the hospital with weakness and dizziness. He denied any melena or hematochezia, but was found to have profound iron deficiency anemia with hemoglobin of 6.2, MCV 76. WBC and platelets are normal. Peripheral smear showed moderate hypochromasia. CMP unremarkable. Iron studies were markedly low. TSH was normal. GI has seen him and will likely do an endoscopy. He is undergoing cardiac evaluation today for some epigastric discomfort that occurs when he eats [employer] chips. PAST MEDICAL HISTORY: Hypertension, hyperlipidemia, tobacco abuse, previous stroke, vertigo. PAST SURGICAL HISTORY: Neck surgery. FAMILY HISTORY: He had 14 siblings, all of whom have except him. However, three brothers had cancer of unknown etiology. It sounds like the rest from natural causes. His dad in his mid 90s and his mom is still living in her mid 90s and sounds fairly healthy. SOCIAL HISTORY: He smokes 2 packs a day for the last 50 years. ALLERGIES: No known drug allergies. CURRENT MEDICATIONS: Atenolol, atorvastatin, Zofran, Percocet, Protonix. REVIEW OF SYSTEMS: Ten-point review of systems attempted, but the patient is fairly limited in the information he wishes to provide. He originally had some weakness, dizziness and epigastric discomfort and sounds like the remainder of his review of systems was unremarkable. PHYSICAL EXAMINATION: VITAL SIGNS: Temperature 98.5, pulse 90, respiratory rate 14, blood pressure 127/59, 93% O2 on room air. GENERAL: He is alert and oriented, appears to overall be in good health, in no distress at this time. HEENT: Extraocular muscle strength is intact. Mucous membranes are moist. CARDIOVASCULAR: Heart is regular in rhythm and rate. LUNGS: Clear to auscultation bilaterally. ABDOMEN: Soft and nontender. EXTREMITIES: No edema. NEUROLOGIC: No focal deficits. IMAGING AND LABORATORY DATA: CBC, iron studies reviewed as above. Chest x-ray and echocardiogram are pending. ASSESSMENT AND PLAN: The patient is a 76-year-old male with the following medical problems: Iron deficiency anemia likely either due to chronic blood loss or decreased dietary absorption. I am giving him Venofer today and also again tomorrow morning if he remains admitted. We discussed that an esophagogastroduodenoscopy and colonoscopy would certainly be warranted at some point in the near future, though he denies any gastrointestinal complaints. Gastrointestinal is following. If tolerated, he can remain on oral iron as an outpatient, but I will replace a large portion of his iron deficit with IV treatment as an inpatient. He states that he does not want to see female physicians. Therefore, I will defer his followup care to his primary care physician who can certainly check CBCs and iron labs in 2 months when I would expect correction to be seen. I added on B12 and folic acid levels which returned normal. Thank you for allowing me to participate in his care. I discussed this information with his nurses and also Xiomy Valdes with GI. GAIL URIBE DO DR: Rah JOB#: [id number] / [id number] PILAR
[2016-11-10] MEDS ORDERED: LIDOCAINE 2% PF Vial for OR 5 ML VIAL. ONE (15:08)
[2016-11-10] MEDS ORDERED: PROPOFOL 20 ML IV ONE (15:08)
--- NOTE | 2016-11-10 15:27 | PDOC4 ---
PROCEDURE Procedure EGD Indication: ABDULAZIZ/history of NSAID use. Meds: per anesthesia Findings: E-irregular Z-line at 45 cm. G-Normal D-1-2mm AVM anterior wall, bulb. Otherwise normal. Misty. well. 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 Could be cause of the anemia. REC: po iron, probably chronic. Consider colonoscopy, though with mental status, prep would be difficult. Thanks. WILFRIDO BERNAL MD Nov 10, 2016 15:27
--- NOTE | 2016-11-10 15:28 | PDOC ---
Provider Note Provider Note H&P dictated. #[id number] DOMINIC BLUNT MD Nov 10, 2016 15:28
--- NOTE | 2016-11-10 16:21 | RAD ---
CT of the chest without contrast, 11/10/2016: History: Shortness of breath, smoker Noncontrast scans were obtained as requested. There is moderate calcific plaquing of the thoracic aorta without evidence of aneurysm. Moderate coronary artery calcifications are present. The left ventricle is mildly prominent. Several small mediastinal lymph nodes are seen without definite pathologic enlargement. There are emphysematous changes in the lungs. There are pulmonary infiltrates, right greater than left, which represent a combination of predominantly groundglass opacities and interlobular septal thickening. Pulmonary edema is most likely. No centrally obstructing bronchial lesion is seen. There is a small amount of left-sided pleural fluid and a small to moderate amount of right-sided pleural fluid. IMPRESSION: 1. Emphysema. 2. Pulmonary infiltrates, right greater than left, suggesting pulmonary edema. Pneumonia cannot be excluded. 3. Small bilateral pleural effusions, right greater than left. 4. Moderate calcific plaquing of the aorta and coronary arteries. PQRS Compliance Statement: One or more of the following individualized dose reduction techniques were utilized for this examination: 1. Automated exposure control 2. Adjustment of the mA and/or kV according to patient size 3. Use of iterative reconstruction technique
[2016-11-10] MEDS: ASPIRIN ENTERIC COATED 81 MG TABLET.DR. PO SCH (17:00)
[2016-11-10 19:40] VITALS: BP 135/63
--- NOTE | 2016-11-10 20:13 | HP ---
ADMIT DATE: 11/10/2016 REASON FOR ADMISSION TO THE HOSPITAL: Weakness, dizziness, epigastric pain, found to be anemic. HISTORY OF PRESENT ILLNESS: The patient is a 76-year-old male, with history of old CVAs on aspirin, hypertension and arthritis; and he has been not doing well, nausea, vomiting, and unsteady epigastric pain. Came to the Emergency Room. His hemoglobin was 7. He was admitted to the hospital. Also, troponin was slightly elevated. Cardiology has been consulted. PAST MEDICAL HISTORY: Hypertension, hyperlipidemia, CVA. PAST SURGICAL HISTORY: Neck surgery in the past. Had a colonoscopy more than 5 years ago. ALLERGIES: No known allergies. SOCIAL HISTORY: Smokes 2 packs per day for 50 years. Denies alcohol. Denies any street drugs. Lives with his . Ambulates with a cane. MEDICATIONS AT HOME: The patient is on amlodipine 10 mg daily, iron 325 twice a day, meloxicam 7.5 daily, loratadine 10 mg daily, meclizine 25 mg 3 times daily, atenolol 25 mg daily, atorvastatin 40 mg daily, oxycodone q. 6 h. for pain. REVIEW OF SYMPTOMS: CARDIAC: No chest pain. GASTROINTESTINAL: Has epigastric pain. Denies any vomiting, blood, or black stools. Rest of the 14 systems were reviewed and negative. PHYSICAL EXAMINATION: GENERAL: The patient is not in any distress. VITAL SIGNS: Temperature 98, pulse 97, respirations 20, blood pressure 128/88, 99% on room air. HEENT: Head is atraumatic. Pupils are equal. Oral cavity: No congestion. NECK: Supple. Thyroid not enlarged. JVD not elevated. CHEST: Symmetrical. CARDIOVASCULAR: S1, S2. LUNGS: Clear to auscultation. ABDOMEN: Epigastric pain to deep palpation. No rebound. Bowel sounds present. No masses palpable. EXTERNAL GENITALIA: No Gómez. RECTAL: Deferred. EXTREMITIES: No calf tenderness or edema. Pulses 1+. NEUROLOGIC: Cranial nerves intact. Power 5/5 in all extremities. LABORATORY DATA: Shows a white count of 9, hemoglobin 6.2, platelets 236. Electrolytes show sodium 147, potassium 3.8, chloride 113, bicarb 23, BUN 15, creatinine 1.1, glucose 105. Troponin went up to 3.75. TSH is 1.9. Chest x-ray shows patchy opacity in the right lung. FINAL IMPRESSION: 1. Severe anemia. 2. Slightly elevated troponin. 3. History of old cerebrovascular accident, on aspirin .. 4. Arthritis on mobic . 5. Hypertension. 6. History of smoking. 7. Slight infiltrate in the lung. PLAN: At this time, admit to hospital, transfuse to keep hemoglobin more than 8. Hematology was consulted and also GI consultation. Possibly needs EGD. Cardiology was consulted for troponin. Needs an echo or stress test. Further recommendations to follow. DOMINIC BLUNT MD DR: ADOLFO/shira JOB#: [id number] / [id number] DOMINIC Kent MD [facility]
[2016-11-10] MEDS: ATORVASTATIN CALCIUM 40 MG TABLET. PO SCH (20:49)
[2016-11-10 23:12] VITALS: BP 125/62
[2016-11-11 03:30] VITALS: BP 142/64
[2016-11-11 05:50] LABS: BASO % 0 % (0-3); EOS % 2 % (0-3); HEMATOCRIT 27.2 % (39.0-53.0); HEMOGLOBIN 8.3 g/dL (13.0-17.5); LYMPH # 1.7 x10^3/uL (1.0-4.8); LYMPH % 13 % (24-48); MEAN CORPUSCULAR HEMOGLOBIN 24 pg (25-35); MEAN CORPUSCULAR HGB CONC 31 g/dL (31-37); MEAN CORPUSCULAR VOLUME 78 fL (79-100); MONO % 13 % (0-9); NEUT % 72 % (31-73); PLATELET COUNT 322 x10^3/uL (140-400); RED CELL DISTRIBUTION WIDTH 20.8 % (11.5-14.5)
[2016-11-11 06:40] LABS: CALCIUM 8.9 mg/dL (8.5-10.1); CREATININE 1.2 mg/dL (0.7-1.3); GFR 71.2; POTASSIUM 3.9 mmol/L (3.5-5.1)
[2016-11-11 07:00] VITALS: BP 127/45
[2016-11-11] MEDS ORDERED: IRON SUCROSE COMPLEX 500 MG in IV NORMAL SALINE 250ML 250 ML IV ONE (07:00)
[2016-11-11] MEDS: IV DEXTROSE 5% - 0.9 % NACL 1,000 ML IV SCH ×3 (07:31→23:14)
[2016-11-11] MEDS: ASPIRIN ENTERIC COATED 81 MG TABLET.DR. PO SCH (08:05)
[2016-11-11] MEDS: ATENOLOL 25 MG TABLET PO SCH (08:05)
[2016-11-11] MEDS: PANTOPRAZOLE 40 MG TABLET. PO SCH (08:05)
[2016-11-11 10:25] VITALS: BP 122/55
--- NOTE | 2016-11-11 11:46 | PDOC ---
PROGRESS NOTES Subjective Subjective feels better today Objective Objective Vital Signs Date Time Temp Pulse Resp B/P Pulse Ox O2 Delivery O2 Flow Rate FiO2 11/11/16 10:25 98.6 68 20 122/55 94 Room Air 98.6 11/11/16 08:00 2.0 Intake and Output 11/11/16 07:00 Intake Total 400 ml Output Total 900 ml Balance -500 ml Intake Oral 400 ml Output Urine Total 900 ml Physical Exam Abdomen: Soft, No tenderness Heart: Regular rate, Normal S1, Normal S2, Other (3/6 systolic murmur to LLS border) Extremities: No cyanosis, Other (2+ bilateral LE pitting edema) General: Alert, Oriented X3, Cooperative, No acute distress HEENT: Atraumatic, Mucous membr. moist/pink Lungs: Other (finat crackles) MUSCULOSKELETAL: Osteoarthritic changes both hands Neuro: Normal speech, Sensation intact Psych/Mental Status: Mental status NL, Other (impulsive) Skin: No breakdown, No significant lesion Diagnosis Problem List Problems Medical Problems: (1) Elevated troponin Status: Acute (2) Symptomatic anemia Status: Acute Assessment Assessment Problems Medical Problems: (1) Elevated troponin Status: Acute (2) Symptomatic anemia Status: Acute FINAL IMPRESSION: 1. Severe anemia. 2. Slightly elevated troponin. 3. History of old cerebrovascular accident, on aspirin and Mobic. 4. Arthritis. 5. Hypertension. 6. History of smoking. 7. Slight infiltrate in the lung. PLAN: EGD duodenal AVM. s/p transfusion 2 u prbc hb 8.5. iron infusions today. home tomorrow. stress test out pt next week. At this time, admit to hospital, transfuse to keep hemoglobin more than 8. Hematology was consulted and also GI consultation. Possibly needs EGD. Cardiology was consulted for troponin. Needs an echo or stress test. Further recommendations to follow. 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 Could be cause of the anemia. Comment Review of Relevant I have reviewed the following items lolly (where applicable) has been applied. Labs Laboratory Tests Test 11/11/16 05:18 White Blood Count 13.0x10^3/uL (4.0-11.0) Red Blood Count 3.50x10^6/uL (4.30-5.70) Hemoglobin 8.3g/dL (13.0-17.5) Hematocrit 27.2% (39.0-53.0) Mean Corpuscular Volume 78fL (79-100) Mean Corpuscular Hemoglobin 24pg (25-35) Mean Corpuscular Hemoglobin Concent 31g/dL (31-37) Red Cell Distribution Width 20.8% (11.5-14.5) Platelet Count 322x10^3/uL (140-400) Neutrophils (%) (Auto) 72% (31-73) Lymphocytes (%) (Auto) 13% (24-48) Monocytes (%) (Auto) 13% (0-9) Eosinophils (%) (Auto) 2% (0-3) Basophils (%) (Auto) 0% (0-3) Neutrophils # (Auto) 9.3x10^3uL (1.8-7.7) Lymphocytes # (Auto) 1.7x10^3/uL (1.0-4.8) Monocytes # (Auto) 1.7x10^3/uL (0.0-1.1) Eosinophils # (Auto) 0.2x10^3/uL (0.0-0.7) Basophils # (Auto) 0.0x10^3/uL (0.0-0.2) Sodium Level 145mmol/L (136-145) Potassium Level 3.9mmol/L (3.5-5.1) Chloride Level 112mmol/L (98-107) Carbon Dioxide Level 24mmol/L (21-32) Anion Gap 9 (6-14) Blood Urea Nitrogen 11mg/dL (8-26) Creatinine 1.2mg/dL (0.7-1.3) Estimated GFR (Cockcroft-Gault) 71.2 Glucose Level 87mg/dL (70-99) Calcium Level 8.9mg/dL (8.5-10.1) Troponin I Quantitative 2.696ng/mL (0.000-0.055) Medications Current Medications Aspirin 81 mg 81 mg [id number] PO Last administered on 11/11/16t 08:05; Start 11/10/16 at 17:00 Iron Sucrose 500 mg/Sodium Chloride 275 ml @ 78.571 mls/ hr 1X ONCE IV Last administered on 11/11/16 09:33; Start 11/11/16 at 07:00; Stop 11/11/16 at 10:29 ; Status DC Levofloxacin/ Dextrose (LEVAQUIN 500mg PREMIX) 100 ml @ 100 mls/hr Q24H IV Last administered on 11/11/16 09:32; Start 11/11/16 at 09:00 Lidocaine HCl (Lidocaine Pf 2% Vial) 5 ml STK-MED ONCE .ROUTE ; Start 11/10/16 at 15:08; Stop 11/10/16 at 15:09; Status DC Pantoprazole Sodium 40 mg 40 mg DAILYAC PO Last administered on 11/11/16 08:05 ; Start 11/11/16 at 07:30 Propofol (Diprivan) 20 ml @ As Directed STK-MED ONCE IV ; Start 11/10/16 at 15: 08; Stop 11/10/16 at 15:09; Status DC Vitals/I & O Vital Sign - Last 24 Hours 11/10/16 11/10/16 11/10/16 11/10/16 14:45 15:22 15:30 15:40 Temp 99.5 99.5 99.5 99.5 99.5 99.5 Pulse 78 75 75 73 Resp 20 20 20 20 B/P 148/70 141/65 148/72 Pulse Ox 97 98 99 98 O2 Delivery Nasal Cannula Nasal Cannula Nasal Cannula Nasal Cannula O2 Flow Rate 2 2 2 2 11/10/16 11/10/16 11/10/16 11/10/16 16:16 19:13 19:40 23:12 Temp 98.1 98.1 98.1 98.1 Pulse 73 67 71 Resp B/P 148/72 135/63 125/62 Pulse Ox 93 92 O2 Delivery Room Air Room Air Room Air O2 Flow Rate 2.0 11/11/16 11/11/16 11/11/16 11/11/16 03:30 07:00 08:00 08:05 Temp 98.9 99.1 98.9 99.1 Pulse 76 76 76 Resp 16 B/P 142/64 127/45 127/45 Pulse Ox 92 93 O2 Delivery Room Air Room Air Room Air O2 Flow Rate 2.0 11/11/16 10:25 Temp 98.6 98.6 Pulse 68 Resp 20 B/P 122/55 Pulse Ox 94 O2 Delivery Room Air Intake and Output 11/10/16 11/10/16 11/11/16 15:00 23:00 07:00 Intake Total 400 ml Output Total 100 ml 500 ml 300 ml Balance -100 ml -500 ml 100 ml DOMINIC BLUNT MD Nov 11, 2016 11:46
[2016-11-11 14:40] VITALS: BP 122/57
[2016-11-11 19:30] VITALS: BP 151/67
[2016-11-11] MEDS: ATORVASTATIN CALCIUM 40 MG TABLET. PO SCH (20:53)
[2016-11-12 07:30] VITALS: BP 154/70
[2016-11-12 08:02] VITALS: BP 154/70
[2016-11-12] MEDS: IV DEXTROSE 5% - 0.9 % NACL 1,000 ML IV SCH (08:18)
[2016-11-12] MEDS: ASPIRIN ENTERIC COATED 81 MG TABLET.DR. PO SCH (08:18)
[2016-11-12] MEDS: PANTOPRAZOLE 40 MG TABLET. PO SCH (08:18)
[2016-11-12] MEDS: ATENOLOL 25 MG TABLET PO SCH (08:18)
[2016-11-12 10:53] VITALS: BP 133/64
--- NOTE | 2016-11-12 13:13 | PDOC ---
PROGRESS NOTES Subjective Subjective anxious to go home Objective Objective Vital Signs Date Time Temp Pulse Resp B/P Pulse Ox O2 Delivery O2 Flow Rate FiO2 11/12/16 10:53 97.2 61 20 133/64 98 Room Air 97.2 11/12/16 08:00 2.0 Intake and Output 11/12/16 07:00 Intake Total 2125 ml Output Total 1850 ml Balance 275 ml Intake Oral 250 ml IV Total 1200 ml Blood Product IV Normal Saline Flush 675 ml Output Urine Total 1850 ml Physical Exam Abdomen: Soft, No tenderness Heart: Regular rate, Normal S1, Normal S2, Other (3/6 systolic murmur to LLS border) Extremities: No cyanosis, Other (2+ bilateral LE pitting edema) General: Alert, Oriented X3, Cooperative, No acute distress HEENT: Atraumatic, Mucous membr. moist/pink Lungs: Other (finat crackles) MUSCULOSKELETAL: Osteoarthritic changes both hands Neuro: Normal speech, Sensation intact Psych/Mental Status: Mental status NL, Other (impulsive) Skin: No breakdown, No significant lesion Diagnosis Problem List Problems Medical Problems: (1) Elevated troponin Status: Acute (2) Symptomatic anemia Status: Acute Assessment Assessment Problems Medical Problems: (1) Elevated troponin Status: Acute (2) Symptomatic anemia Status: Acute FINAL IMPRESSION: 1. Severe anemia. 2. Slightly elevated troponin. 3. History of old cerebrovascular accident, on aspirin and Mobic. 4. Arthritis. 5. Hypertension. 6. History of smoking. 7. Slight infiltrate in the lung. PLAN: d/c home MPI stress test next week EGD duodenal AVM. s/p transfusion 2 u prbc hb 8.5. iron infusions today. home today ct scan noted doubt pneumonia At this time, admit to hospital, transfuse to keep hemoglobin more than 8. Hematology was consulted and also GI consultation. Possibly needs EGD. Cardiology was consulted for troponin. Needs an echo or stress test. Further recommendations to follow. Problems: Plan Plan of Care Problems Medical Problems: (1) Elevated troponin Status: Acute (2) Symptomatic anemia Status: Acute Comment Review of Relevant I have reviewed the following items lolly (where applicable) has been applied. Vitals/I & O Vital Sign - Last 24 Hours 11/11/16 11/11/16 11/11/16 11/11/16 14:40 19:12 19:30 23:37 Temp 98.8 97.7 98.8 97.7 Pulse 67 70 69 Resp 20 17 B/P 122/57 151/67 Pulse Ox 93 100 O2 Delivery Room Air Room Air Room Air Room Air 11/12/16 11/12/16 11/12/16 11/12/16 03:50 07:30 08:00 08:18 Temp 98.0 98.0 Pulse 68 69 69 Resp 20 B/P 154/70 154/70 Pulse Ox 94 O2 Delivery Room Air Room Air Room Air O2 Flow Rate 2.0 11/12/16 10:53 Temp 97.2 97.2 Pulse 61 Resp 20 B/P 133/64 Pulse Ox 98 O2 Delivery Room Air Intake and Output 11/11/16 11/11/16 11/12/16 15:00 23:00 07:00 Intake Total 675 ml 1450 ml Output Total 1100 ml 750 ml Balance -425 ml 700 ml DOMINIC BLUNT MD Nov 12, 2016 13:13
[2016-11-12] MEDS ORDERED: PANT40TA5 PO (13:14)
--- NOTE | 2016-11-15 15:59 | PDOC ---
Provider Note Provider Note Discharge summary dictated . #[id number] DOMINIC BLUNT MD Nov 15, 2016 15:59
--- NOTE | 2016-11-16 02:53 | DS ---
DATE OF DISCHARGE: 11/12/2016 REASON FOR ADMISSION TO THE HOSPITAL: 1. Anemia. 2. Chest pain. 3. Elevated troponin. CONSULTATIONS: 1. Dr. Ritchie. 2. Dr. Santa Morgan. 3. Dr. Short. PROCEDURES DONE: 1. Echocardiogram. 2. EGD. 3. Iron infusion. HOSPITAL COURSE: The patient, a 76-year-old male patient, came with not feeling well, fatigue and chest pain. Troponin was elevated to 2.6 and was asymptomatic. EKG was negative. Hemoglobin was 7.6. Was seen by H[facility]ology [facility] Gastrointestinal. Hemoglobin was 6.2. Was given 2 units for RBC, went up to 8.3. Troponin peaked to 3.7. B12, folic acid was normal. His iron was low at 12, saturation was low at 3, TIBC was 388. The patient had a CT chest, which shows emphysema, small infiltrates in the lung, could be secondary to CHF, calcified coronary arteries. 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 FINAL IMPRESSION: 1. Severe anemia, hemoglobin 6.2. Esophagogastroduodenoscopy shows arteriovenous malformations. 2. Iron deficiency anemia, received iron infusion, also received blood transfusion. 3. Non-ST elevation myocardial infarction, elevated troponin peaked at 3.0, demand ischemia and asymptomatic. Scheduled for outpatient stress test. The patient is feeling better. He was discharged. Follow up as outpatient to have a stress test done to evaluate the cardiac function. Echocardiogram reveals good left ventricular function. DOMINIC BLUNT MD DR: ADOLFO/shira JOB#: [id number] / [id number] PILAR
== END 2016-11-12 15:30 | disposition home or self-care (01) | DRG 281 ==
LOC: ER 10:47 → ED HOLD 12:30 → 2 SOUTH 14:28
PROVIDERS: ADMIT Internal Medicine; ATTEND Internal Medicine
PROC: 30233N1 Transfusion of Nonautologous Red Blood Cells into Peripheral Vein, Percutaneous Approach (ICD-10-PCS; principal; 2016-11-09)
PROC: 0DJ08ZZ Inspection of Upper Intestinal Tract, Via Natural or Artificial Opening Endoscopic (ICD-10-PCS; 2016-11-10)
DX: I21.4 Non-ST elevation (NSTEMI) myocardial infarction (principal); I69.354 Hemiplegia and hemiparesis following cerebral infarction affecting left non-dominant side; D50.9 Iron deficiency anemia, unspecified; E78.00 Pure hypercholesterolemia, unspecified; E78.5 Hyperlipidemia, unspecified; F03.90 Unspecified dementia, unspecified severity, without behavioral disturbance, psychotic disturbance, mood disturbance, and anxiety; F17.210 Nicotine dependence, cigarettes, uncomplicated; J30.9 Allergic rhinitis, unspecified; K21.9 Gastro-esophageal reflux disease without esophagitis; M19.90 Unspecified osteoarthritis, unspecified site; Q27.33 Arteriovenous malformation of digestive system vessel; I50.9 Heart failure, unspecified; I11.0 Hypertensive heart disease with heart failure
CPT/HCPCS: 36415; 71020; 71250; 80048; 80053; 80061; 82607; 82746; 83036; 83540; 83550; 83880; 84443; 84484; 85007; 85027; 85610; 86850; 86900; 86901; 86920; 93005; 93306; 96374; C9113; G0103; J1756; J1956; J2704; J7042; J7050; P9016; P9040; 99285-25; J7030